=== PATIENT | male | born 1995 | race African-American/Black ===

== ENCOUNTER 2017-09-14 07:40 | Emergency (ER) | payer MEDICAID ==
[~2017-09-14] VITALS: Ht 185.4 cm; Wt 86.2 kg
[2017-09-14 07:43] VITALS: BP 143/75
--- NOTE | 2017-09-14 07:48 | NUR ---
PT AMBULATED TO BED 1.
--- NOTE | 2017-09-14 08:00 | NUR ---
Note undone in EDM - 09/14/17 at 0827 by MILAGROS 22m bib self with c/o 10/10 left shoulder pain since this am. Pt sts he woke up and "moved the wrong way". Bone deformity to left shoulder. Skin and cms intact to bl arm. Skin warm/pink/dry. Pt is aox4. RR are even and unlabored. nad at this time. awaiting er md bush. will continue to monitor.
--- NOTE | 2017-09-14 08:00 | NUR ---
22m bib self with c/o 10/10 right shoulder pain since this am. Pt sts he woke up and "moved the wrong way". Bone deformity to left shoulder. Skin and cms intact to bl arm. Skin warm/pink/dry. Pt is aox4. RR are even and unlabored. nad at this time. awaiting er md bush. will continue to monitor.
--- NOTE | 2017-09-14 08:03 | NUR ---
Dr. Munoz is at bedside.
[2017-09-14] MEDS ORDERED: MORPHINE SULFATE 4 MG/ML SYR IM ONE (08:05)
[2017-09-14] MEDS ORDERED: PROPOFOL 200 MG/20 ML VIAL IV ONE ×3 (08:10→09:15)
[2017-09-14] MEDS ORDERED: NACL 0.9% 1,000 ML IV ONE (08:10)
[2017-09-14] MEDS ORDERED: ETOMIDATE 20 MG/10 ML VIAL IVP ONE ×2 (09:21→09:35)
[2017-09-14] MEDS ORDERED: ONDANSETRON 4 MG/2 ML VIAL ONE (09:30)
--- NOTE | 2017-09-14 09:45 | NUR ---
AT 0900 I ACCOMPANIED TO BEDSIDE TO DO CONSCIOUS SEDATION FOR CLOSED REDUCTION OF RIGHT SHOULDER. SEE PROCEDURE NOTES FOR DETAILS PATIENT REQUIRED 4 DIFFERENT INJECTIONS OF PROPOFOL AND NEVER WAS UNCONSCIOUS. HE TRIED TO GET UP LATER AT [id number] AND SHOULDER WAS OUT AGAIN A SECOND REDUCTION TOOK PLACE AND USED ETOMIDATE. POST REDUCTION FILM ORDERED.
--- NOTE | 2017-09-14 10:00 | NUR ---
PATIENT IS AWAKE AND ALERT VITALS ARE WNL AND HE DENIES PAIN. AWAITING POST REDUCTION FILM.
[2017-09-14 10:32] VITALS: BP 117/66
--- NOTE | 2017-09-14 10:34 | NUR ---
Patient discharged with v/s stable. Written and verbal after care instructions given and explained. Patient verbalized understanding. Ambulatory with steady gait. All questions addressed prior to discharge. Advised to follow up with PMD.
== END 2017-09-14 10:34 | disposition home or self-care (01) ==
LOC: MED 07:40
DX: S43.014A Anterior dislocation of right humerus, initial encounter (principal); X58.XXXA Exposure to other specified factors, initial encounter; Y93.89 Activity, other specified; Y92.89 Other specified places as the place of occurrence of the external cause; Y99.8 Other external cause status; F14.10 Cocaine abuse, uncomplicated; F12.10 Cannabis abuse, uncomplicated; F10.10 Alcohol abuse, uncomplicated
CPT/HCPCS: 23650; 73030; 96360; 96372; 99152; 99285; J2270; J2405; J2704; J3490; J7030; Q0092